=== PATIENT | male | born 2000 | race African-American/Black ===

== ENCOUNTER 2020-09-12 16:41 | Emergency (ER) | payer OTHER ==
[2020-09-12 16:45] VITALS: BP 118/69; PULSE 69; TEMP 97; BMI 19.3
[2020-09-12] MEDS ORDERED: DIPHTH,PERTUSS(ACELL),TET 0.5 ML DISP.SYRIN IM ONE ×2 (17:09→17:29)
== END 2020-09-12 18:02 | disposition home or self-care (01) ==
LOC: JERFT 16:41
PROC: 0HQFXZZ Repair Right Hand Skin, External Approach (ICD-10-PCS; principal; 2020-09-12)
PROC: 3E0234Z Introduction of Serum, Toxoid and Vaccine into Muscle, Percutaneous Approach (ICD-10-PCS; principal; 2020-09-12)
DX: S61.411A Laceration without foreign body of right hand, initial encounter (principal); X99.1XXA Assault by knife, initial encounter
CPT/HCPCS: 90471; 90715; 99282-25

== ENCOUNTER 2020-09-19 16:42 | Emergency (ER) | payer OTHER ==
[2020-09-19 17:10] VITALS: BP 150/76; PULSE 72; TEMP 98.2; BMI 16.9
== END 2020-09-19 19:43 | disposition home or self-care (01) ==
LOC: JERFT 16:42
DX: Z48.02 Encounter for removal of sutures (principal)
CPT/HCPCS: 99281-25